=== PATIENT | male | born 1975 | race Two or more races ===

== ENCOUNTER 2022-10-14 02:04 | Emergency (ER) | payer OTHER ==
[~2022-10-14] VITALS: Ht 188 cm; Wt 90.7 kg
== END 2022-10-14 10:42 | disposition home or self-care (01) ==
LOC: ER 02:04
DX: F14.10 Cocaine abuse, uncomplicated (principal); F10.10 Alcohol abuse, uncomplicated; F41.9 Anxiety disorder, unspecified; R06.02 Shortness of breath; R00.2 Palpitations; Z63.0 Problems in relationship with spouse or partner